=== PATIENT | male | born 1970 | race Caucasian/White ===

== ENCOUNTER 2019-02-28 19:25 | Emergency (ER) | payer SELFPAY ==
[2019-02-28] MEDS: DIPHTH/TET/ACEL PERTUSS (ADULT) 0.5 ML VIAL IM* (21:36)
[2019-02-28] MEDS: LIDOCAINE 2%/EPI MPF (SDV) 20 ML VIAL INJ (21:37)
[2019-02-28] MEDS: LIDOCAINE 4% CR TOP (21:37)
[2019-02-28] MEDS: SODIUM CHLORIDE 0.9% 1L IRRIG IRR (21:37)
[2019-02-28] MEDS: OXYCODONE/ACETAMINOPHEN (5/325) TAB PO (22:04)
[2019-02-28] MEDS ORDERED: BACITRACIN 0.9 GM OINT (23:13)
== END 2019-02-28 23:24 | disposition home or self-care (01) ==
LOC: FTE 19:25
DX: S01.91XA Laceration without foreign body of unspecified part of head, initial encounter (principal); X99.0XXA Assault by sharp glass, initial encounter; Z23 Encounter for immunization
CPT/HCPCS: 12013; 70260; 90471; 90715; 99283-25

== ENCOUNTER 2019-03-06 15:14 | Emergency (ER) | payer SELFPAY | END 2019-03-06 18:13 | disposition home or self-care (01) | LOC: FTE 15:14 | DX: S09.90XD Unspecified injury of head, subsequent encounter (principal); R51 Headache; W22.8XXD Striking against or struck by other objects, subsequent encounter; Z48.02 Encounter for removal of sutures | CPT/HCPCS: 70450; 73080-RT; 73110-RT; 99284-25 ==